=== PATIENT | male | born 1990 | race Caucasian/White ===

== ENCOUNTER 2024-04-25 20:59 | Emergency (ER) | payer BC, SELFPAY ==
[2024-04-25 21:01] VITALS: BP 163/103
--- NOTE | 2024-04-25 22:31 | ED.SKININJ ---
HPI-Injury
General
Chief Complaint: Skin Surface Trauma
Source: patient
Exam Limitations: none
Time Seen by Provider: 04/25/24 22:17
History of Present Illness-Injury
Initial Injury comments:
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 States there is a flap of skin that is loose on the tip of his index finger. Last tetanus is more than 5
years ago. He notes some of this burning discomfort no other complaints.
Phy Exam
Physical Exam
Physical Exam:
General: Well-appearing male no acute respiratory distress
Skin: Half centimeter avulsion type laceration with flap intact distal radial aspect left index finger. Not currently bleeding no tendon involvement
Musculoskeletal exam: Good range of motion left index
Course
Orders/Labs/Results
Orders:
Orders
04/25/24 22:30
Tetanus/Diphth/Acelpertussis [Adacel] 0.5 ml IM .ONCE ONE
Vital Signs
Initial and Last Documented VS:
Initial Vital Signs
Temp Pulse BP Pulse Ox
98.2 F 92 163/103 95
04/25/24 21:01 04/25/24 21:01 04/25/24 21:01 04/25/24 21:01
Last Documented Vital Signs
Temp Pulse BP Pulse Ox
98.2 F 92 163/103 95
04/25/24 21:01 04/25/24 21:01 04/25/24 21:01 04/25/24 21:01
MDM/Problems Addressed
Differential Diagnosis Includes:
Avulsion type laceration left distal index finger. The wound was irrigated with saline and dried and the flap was held in place with benzoin Steri-Strips. Gauze dressing was applied. Tetanus vaccine updated. Wound care instructions were given
stable for discharge
*Critical Care Note
Total Time (30-74mins, 75-104mins- exclusive of procedures): Not Applicable
ED Attending Note
-
Portions of this chart may have been created with voice recognition software.� Occasional wrong word or��sound alike� substitutions may have occurred due to the inherent limitations of voice recognition software.
Discharge Plan
Departure
Patient Disposition: Home (Routine Discharge)
Date of Disposition: 04/25/24
Time of Disposition: 22:32
Patient with high blood pressure during this ER visit?: No
Discharge Problem:
Laceration
Instructions: Wound Care (DC)
Prescriptions:
No Action
benzonatate 100 mg capsule
100 - 200 mg PO TID PRN (Reason: Cough) Qty: 20 0RF
Referrals:
Kathleen Gonzales MD [Family Provider] -
Activity Restrictions/Additional Instructions:
Keep clean. Change dressing daily. The Steri-Strips will fall off on their own. Return if needed otherwise
Interventions
Interventions:
*Risk Screen - Suicide Last Done: 04/25/24 21:01
*General Assessment Last Done: 04/25/24 21:01
*Neglect/Abuse Screening Last Done: 04/25/24 21:01
*ED COVID-19 Vaccine History Last Done: 04/25/24 22:10
ED-Skin Assessment Last Done: 04/25/24 22:10
Discharge Date and Time
Print Language: FIJIAN
[2024-04-25] MEDS: ADACEL 0.5 ML IM (22:35)
== END 2024-04-25 23:02 | disposition home or self-care (01) ==
LOC: EMR 20:59
PROVIDERS: EMERGENCY PHYSICIAN Emergency Medicine; FAMILY PHYSICIAN Internal Medicine
DX: S61.211A Laceration without foreign body of left index finger without damage to nail, initial encounter (principal); W27.4XXA Contact with kitchen utensil, initial encounter; Z23 Encounter for immunization
CPT/HCPCS: 99282; 90471; 90715